=== PATIENT | female | born 2005 | race Caucasian/White ===

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

== ENCOUNTER → 2025-04-25 | Emergency (ER) | payer OTHER ==
[~2025-04-25] VITALS: Ht 175.3 cm; Wt 88.9 kg
[~2025-04-25] MED LIST changes: +CHILDREN'S ASPI81 MG; +PRENATA CHEWAB1 EACH
[2025-04-25 21:48] LABS: BASO % 0.4 % (0.1-1.2); EOS % 0.7 % (0.7-7.0); HEMATOCRIT 32.4 % (34.1-44.9); HEMOGLOBIN 10.7 g/dL (11.2-15.7); LYMPH # 1.83 (1.18-3.74); LYMPH % 13.4 % (19.3-53.1); MEAN CORPUSCULAR HEMOGLOBIN 27.4 pg (25.6-32.2); MONO # 1.16 (0.24-0.82); MONO % 8.5 % (4.7-12.5); NEUT # 10.44 (1.56-6.13); NEUT % 76.2 % (34.0-71.1); PLATELET COUNT 320 K/uL (163-369); RED BLOOD COUNT 3.91 M/uL (3.93-5.22); RED CELL DISTRIBUTION WIDTH 14.4 % (11.6-14.4)
[2025-04-25 22:25] LABS: ALBUMIN 2.2 gm/dL (3.4-5.0); BILIRUBIN TOTAL 0.43 mg/dL (0.3-1.2); CALCIUM 9.1 mg/dL (8.5-10.1); CREATININE SERUM 0.7 mg/dL (0.55-1.02); GFR 105.63; GLOBULINA 4.6 G/DL (2.4-3.5); POTASSIUM 3.57 mEq/L (3.5-5.1); TOTAL PROTEIN 6.8 gm/dL (6.4-8.2)
== END | disposition designated cancer center or children's hospital (05) ==
LOC: ER 17:26
PROVIDERS: Preventive Medicine Public Health & General Preventive Medicine
DX: O26.643 Intrahepatic cholestasis of pregnancy, third trimester (principal); Z3A.31 31 weeks gestation of pregnancy; J45.909 Unspecified asthma, uncomplicated